=== PATIENT | female | born 1955 | race Caucasian/White ===

== ENCOUNTER 2016-10-20 07:20 | Day surgery (SDC) | payer BC ==
[~2016-10-20] VITALS: Ht 157.5 cm; Wt 72.6 kg
[~2016-10-20 07:20] MED LIST: ALDACTONE100 MG PO; ALDACTONE50 MG PO; ELMIRON100 MG PO; LIPITOR40 MG PO; LO-DOSE ASPIRIN81 M1 PO; MINIVELLE1 EAC1 TD; MOBIC15 MG PO; MYRBETRIQ50 MG PO; NEXIUM40 MG PO; NORVASC5 MG PO; OS-CAL 500+D T1 EAC1 PO; OSCAL PO; VANIQA 13.9% CR30 GM TP; VIVELLE-DOT0.1 MG TD; [UNRECOGNIZED DRUG - OTHER] PO
[2016-10-20 07:43] VITALS: BP 136/82
[2016-10-20] MEDS ORDERED: MEDROL DOSEPAK4 MG PO (08:17)
[2016-10-20 08:21] VITALS: BP 136/82
[2016-10-20 11:07] VITALS: BP 100/54
== END 2016-10-20 11:30 | disposition home or self-care (01) ==
LOC: SDC 07:20
PROC: 0U5 Female Reproductive System, Destruction (ICD-10-PCS; principal; 2016-10-20)
DX: N89.0 Mild vaginal dysplasia (principal); I10 Essential (primary) hypertension; J45.909 Unspecified asthma, uncomplicated; K21.9 Gastro-esophageal reflux disease without esophagitis; M19.90 Unspecified osteoarthritis, unspecified site
CPT/HCPCS: 88305; 88342 TC; J1100; J1580; J2405; J3010; J7050; J7120; S0030

== ENCOUNTER → 2017-04-26 | Outpatient (CLI) | payer BC ==
[~2017-04-26] MED LIST changes: +MEDROL DOSEPAK4 MG PO
== END | disposition home or self-care (01) ==
LOC: CDC 08:45
DX: M65.321 Trigger finger, right index finger (principal); M65.331 Trigger finger, right middle finger; M65.349 Trigger finger, unspecified ring finger; R94.31 Abnormal electrocardiogram [ECG] [EKG]
CPT/HCPCS: 93000

== ENCOUNTER → 2018-01-08 | Outpatient (CLI) | payer BC | END | disposition home or self-care (01) | LOC: CDC 09:26 | DX: Z01.810 Encounter for preprocedural cardiovascular examination (principal); M75.40 Impingement syndrome of unspecified shoulder; M25.512 Pain in left shoulder | CPT/HCPCS: 93000 ==